=== PATIENT | male | born 1985 | race Two or more races ===

== ENCOUNTER 2020-07-24 12:17 | Emergency (ER) | payer MEDICAID, OTHER ==
[~2020-07-24] VITALS: Ht 182.9 cm; Wt 95.3 kg
[~2020-07-24 12:17] MED LIST: NORCO
[2020-07-24 14:39] VITALS: BP 136/79
== END 2020-07-24 15:41 | disposition home or self-care (01) ==
LOC: ER 12:17
DX: B02.9 Zoster without complications (principal)